=== PATIENT | male | born 1965 | race Caucasian/White ===

== ENCOUNTER 2016-05-01 08:25 | Inpatient (IN) | payer OTHER ==
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
[2016-07-12] MEDS ORDERED: LACTATED RINGERS 1,000 ML ONE (05:34)
[2016-07-12] MEDS ORDERED: GABAPENTIN 600 MG TABLET ONE (05:35)
[2016-07-12] MEDS ORDERED: TRAMADOL HCL 50 MG TABLET ONE (05:35)
[2016-07-12] MEDS ORDERED: ONDANSETRON 4 MG/2ML 2 ML VIAL ONE (05:35)
[2016-07-12] MEDS ORDERED: OXYCODONE HCL 10 MG TAB.SR PO ONE ×2 (05:35→07:45)
[2016-07-12] MEDS ORDERED: IV START KIT ONE (05:35)
[2016-07-12] MEDS ORDERED: FAMOTIDINE 20 MG TABLET ONE (05:35)
[2016-07-12] MEDS ORDERED: CELECOXIB 200 MG CAPSULE ONE (05:36)
[2016-07-12] MEDS ORDERED: CLONIDINE HCL 0.1 MG/24 HR (7 DAY PATCH) TD ONE (05:36)
[2016-07-12] MEDS ORDERED: KETAMINE HCL UD SYRINGE 100 MG/2 ML IV ONE ×2 (07:17→10:17)
[2016-07-12] MEDS ORDERED: MIDAZOLAM HCL 5 MG/5 ML VIAL ONE ×2 (07:17→08:46)
[2016-07-12] MEDS ORDERED: FENTANYL 5 ML ONE (07:18)
[2016-07-12] MEDS ORDERED: GABAPENTIN 600 MG TABLET PO ONE (07:45)
[2016-07-12] MEDS ORDERED: FAMOTIDINE 20 MG TABLET PO ONE (07:45)
[2016-07-12] MEDS ORDERED: TRANEXAMIC ACID 1,000 MG in SODIUM CHLORIDE 0.9% 100 ML IV PRN (07:45)
[2016-07-12] MEDS ORDERED: CELECOXIB 200 MG CAPSULE PO ONE (07:45)
[2016-07-12] MEDS ORDERED: POLYMYXIN B SULFATE 500,000 UNITS, BACITRACIN 25,000 UNITS in SODIUM CHLORIDE 3 L IRRIG... IR PRN (07:45)
[2016-07-12] MEDS ORDERED: BUPIVACAINE 0.25% (MDV) 20 ML in SODIUM CHLORIDE 0.9% FLUSH 20 ML IF PRN (07:45)
[2016-07-12] MEDS ORDERED: CEFAZOLIN SODIUM 2 GRAM PREMIX 100 ML IV PRN (07:45)
[2016-07-12] MEDS ORDERED: CLONIDINE HCL 0.1 MG/24 HR (7 DAY PATCH) TD SCH (07:45)
[2016-07-12] MEDS ORDERED: ONDANSETRON 4 MG/2ML 2 ML VIAL IV ONE (07:45)
[2016-07-12] MEDS ORDERED: BUPIVACAINE 0.25% (MDV) 24 ML, MORPHINE SULFATE 8 MG, EPINEPHRINE 0.3 MG in SODIUM CHLO... IF PRN (07:45)
[2016-07-12] MEDS ORDERED: TRAMADOL HCL 50 MG TABLET PO ONE (07:45)
[2016-07-12] MEDS ORDERED: CEFAZOLIN SODIUM 2 GRAM PREMIX 100 ML IV ONE (07:48)
[2016-07-12] MEDS ORDERED: BUPIVACAINE 0.5% (PRES FREE) 30 ML VIAL ONE (08:36)
[2016-07-12] MEDS ORDERED: SPINAL PROCEDURAL TRAY 1 EACH ONE (08:36)
[2016-07-12] MEDS ORDERED: PROPOFOL 40 ML IV ONE (08:46)
[2016-07-12] MEDS ORDERED: EPHEDRINE SULFATE UD SYR 25 MG 25 MG/5 ML SYRINGE IV ONE (10:07)
[2016-07-12] MEDS ORDERED: HYDROMORPHONE HCL 1 MG/ML SYRINGE IV PRN (10:13)
[2016-07-12] MEDS ORDERED: PROMETHAZINE HCL 25 MG/ML VIAL IM PRN (10:13)
[2016-07-12] MEDS ORDERED: FENTANYL 100 MCG/2 ML VIAL IV PRN (10:13)
[2016-07-12] MEDS ORDERED: ONDANSETRON 4 MG/2ML 2 ML VIAL IV PRN ×2 (10:13→12:37)
[2016-07-12] MEDS ORDERED: LACTATED RINGERS 1,000 ML IV SCH (10:15)
[2016-07-12] MEDS ORDERED: PROPOFOL 20 ML IV ONE ×2 (10:17)
[2016-07-12] MEDS ORDERED: PHENYLEPHRINE 10 MG/1 ML (1%) VIAL ONE (10:21)
[2016-07-12] MEDS ORDERED: ON-Q PUMP/ROPIVACAINE 0.2% 0 ML ONE (11:55)
[2016-07-12] MEDS ORDERED: TRAZODONE HCL 50 MG TABLET PO PRN (12:37)
[2016-07-12] MEDS ORDERED: CALCIUM CARBONATE 500 MG TAB.CHEW PO PRN (12:37)
[2016-07-12] MEDS ORDERED: HYDROXYZINE PAMOATE 25 MG CAPSULE PO PRN (12:37)
--- NOTE | 2016-07-12 12:54 | RAD ---
Exam: Single view pelvis COMPARISON: 11/04/2015 INDICATION: Postop left OREN. Findings: 2 AP views of the pelvis were obtained. Postsurgical changes of recent left hip arthroplasty are appreciated. Alignment is normal. No pericomponent fracture is identified. Skin francisca are present. A thin, linear metallic density projects over the pelvis and was present on the preoperative exam. Degenerative changes are again noted in the right hip. IMPRESSION: Expected postoperative appearance following left hip arthroplasty.
[2016-07-12 13:22] VITALS: BMI 23.3
[2016-07-12] MEDS ORDERED: PUMP TUBING ONE (13:36)
[2016-07-12] MEDS: D5 1/2NS with 20 mEq KCL 1,000 ML IV SCH ×2 (13:39→20:42)
[2016-07-12] MEDS ORDERED: FLU VACC 2016-17 (36MO-64Y)/PF 60 MCG/0.5 ML SYRINGE IM V ONE (13:41)
[2016-07-12] MEDS: ACETAMINOPHEN 500 MG TABLET PO SCH ×2 (13:42→19:05)
[2016-07-12] MEDS: CEFAZOLIN SODIUM 1 GRAM PREMIX 1 G in Premix (D5W) 50 ml 1 EACH IV SCH (17:47)
[2016-07-12] MEDS ORDERED: TRAMADOL HCL 50 MG TABLET PO PRN (18:45)
[2016-07-12] MEDS: KETOROLAC TROMETHAMINE 30 MG/ML 1 ML VIAL IV PRN (19:05)
[2016-07-12] MEDS: OXYCODONE HCL 5 MG TABLET PO PRN (19:05)
[2016-07-12] MEDS: DOCUSATE SODIUM 100 MG CAPSULE PO SCH (20:41)
[2016-07-12] MEDS: OXYCODONE HCL 10 MG TAB.SR PO SCH (20:42)
[2016-07-12] MEDS: ASCORBIC ACID 500 MG TABLET PO SCH (20:42)
[2016-07-13] MEDS ORDERED: CEFAZOLIN SODIUM 1 GRAM PREMIX 50 ML IV ONE (00:47)
[2016-07-13] MEDS: KETOROLAC TROMETHAMINE 30 MG/ML 1 ML VIAL IV PRN ×2 (00:54→05:32)
[2016-07-13] MEDS: OXYCODONE HCL 5 MG TABLET PO PRN ×4 (00:54→11:45)
[2016-07-13] MEDS: ACETAMINOPHEN 500 MG TABLET PO SCH ×4 (00:54→11:45)
[2016-07-13] MEDS: CEFAZOLIN SODIUM 1 GRAM PREMIX 1 G in Premix (D5W) 50 ml 1 EACH IV SCH (00:55)
[2016-07-13] MEDS: HYDROMORPHONE HCL 0.5 MG/0.5 ML SYRINGE IV PRN ×2 (03:59→05:12)
[2016-07-13] MEDS: D5 1/2NS with 20 mEq KCL 1,000 ML IV SCH (05:32)
[2016-07-13 07:10] LABS: HEMATOCRIT 35.2 % (32.0-52.0); HEMOGLOBIN 11.8 gm/l (14.0-18.0); MEAN CELL VOLUME 92.9 fl (80.0-94.0); MEAN CORPUSCULAR HEMOGLOBIN 31.1 pg (27.0-31.0); MEAN CORPUSCULAR HGB CONC 33.5 g/dl (33.0-37.0); RED CELL DISTRIBUTION WIDTH 13.1 % (11.5-14.5)
[2016-07-13 07:29] LABS: CALCIUM 8.1 mg/dL (8.6-10.3)
[2016-07-13] MEDS ORDERED: REMOVE PATCH 1 EACH UNIT TD SCH (07:45)
--- NOTE | 2016-07-13 08:09 | PDOC43 ---
- Subjective Findings: POD1 Left OREN. Subjective: Denies Pain Tolerable, Denies Chest Pain, Denies Shortness of Breath , Denies Nausea, Denies Vomiting - Objective Vital Signs Temperature 98.8 F 07/13/16 07:00 Pulse Rate 90 07/13/16 07:00 Respiratory Rate 20 07/13/16 07:00 Blood Pressure 118/76 07/13/16 07:00 O2 Saturation by Pulse Oximetry 99 07/13/16 07:00 Oxygen Delivery Method Nasal Cannula Oxygen Flow Rate 2 Laboratory 07/13/16 06:20 07/13/16 06:20 07/13/16 06:20 RBC 3.79 L MCH 31.1 H Estimated GFR 102 H Calcium 8.1 L Active Medication Orders Category Date Time Status Acetaminophen [Tylenol] Med 07/12/16 12:37 Active 1,000 mg PO Q6H Ascorbic Acid [Vitamin C] Med 07/12/16 21:00 Active 500 mg PO BID Aspirin (Enteric Coated) [Ecotrin] Med 07/13/16 09:00 Active 325 mg PO DAILY Bisacodyl [Dulcolax] Med 07/15/16 11:57 Active 10 mg OR DAILY PRN Calcium Carbonate [Tums] Med 07/12/16 12:37 Active 1,000 - 2,000 mg PO Q2H PRN D5 1/2NS with 20 mEq KCL [D51/2NS with 20 mEq KCL] 1, Med 07/12/16 12:37 Active 000 ml IV 125 mls/hr Docusate Sodium [Colace] Med 07/12/16 21:00 Active 100 mg PO BID Hydromorphone HCl [Dilaudid] Med 07/12/16 12:37 Active 0.5 mg IV Q1H PRN Hydroxyzine Pamoate [Vistaril] Med 07/12/16 12:37 Active 25 - 50 mg PO Q4H PRN Ketorolac Tromethamine [Toradol] Med 07/12/16 12:37 Active 30 mg IV Q6H PRN Magnesium Hydroxide [Milk of Magnesia] Med 07/13/16 11:57 Active 30 ml PO DAILY PRN Multivitamins [One-A-Day] Med 07/13/16 09:00 Active 1 tab PO DAILY Ondansetron 4 mg/2ml Vial [Zofran] Med 07/12/16 12:37 Active 4 - 6 mg IV Q6H PRN Oxycodone HCl [Roxicodone] Med 07/13/16 07:53 Ordered 5 - 10 mg PO Q3H PRN Oxycodone Sr [Oxycontin] Med 07/12/16 21:00 Active 10 mg PO Q12HR Remove Patch Med 07/13/16 11:57 Once 1 each TD X1 ONE Sodium Chloride 0.9% Flush [Normal Saline 10ml Flush] Med 07/12/16 12:37 Active 10 - 50 ml IV PRN PRN Sodium Chloride 0.9% Flush [Normal Saline 10ml Flush] Med 07/12/16 17:00 Active 10 ml IV Q8HR Tramadol HCl [Ultram] Med 07/12/16 18:45 Active 50 mg PO Q6H PRN Trazodone HCl [Desyrel] Med 07/12/16 12:37 Active 25 mg PO BEDTIME PRN Intake and Output 07/11/16 07/12/16 07/13/16 23:59 23:59 23:59 Intake Total 3426 1680 Output Total 1075 800 Balance 2351 880 General: Afebrile Lungs: Normal Air Movement Skin: Normal Color, Warm, Dry - Left Lower Extremity Incision: Dressing Clean/Dry/Intact, Rash, No Dressing Saturated Motor: Extensor Hallucis Longus: 5/5, Tibialis Anterior: 5/5, Gastrocnemius: 5/5 , Peroneals: 5/5 Gross Sensation to Light Touch: Present: Deep Peroneal Nerve, Superficial Peroneal Nerve - Problems (1) Status post total hip replacement, left Status: Acute - Additional Comments POD1 after Left OREN. Patient reports increased pain this morning in left hip. 1. Physical Therapy: WBAT with [facility]. 2. Pain Control: multimodal pain control as needed, Increase Oxycodone 5/325mg 2 -tablets every 3-hours for increased pain this morning. 3. DVT Prophylaxis: ASA 325mg, mobilization. 4. Disposition: Plan for discharge home today. 5. Medical Issues: Adjusted pain medication to address Poor pain control this morning.
[2016-07-13] MEDS: OXYCODONE HCL 10 MG TAB.SR PO SCH (08:17)
[2016-07-13] MEDS: ASCORBIC ACID 500 MG TABLET PO SCH (08:17)
[2016-07-13] MEDS: DOCUSATE SODIUM 100 MG CAPSULE PO SCH (08:17)
[2016-07-13] MEDS ORDERED: ASPIRIN (ENTERIC COATED) 325 MG TABLET.EC PO SCH (09:00)
[2016-07-13] MEDS ORDERED: MULTIVITAMINS 1 TAB TABLET PO SCH (09:00)
[2016-07-13] MEDS ORDERED: REMOVE PATCH 1 EACH UNIT TD ONE (11:57)
[2016-07-13] MEDS ORDERED: MAGNESIUM HYDROXIDE 30 ML UDCUP PO PRN (11:57)
[2016-07-13 13:31] VITALS: BP 122/72
--- NOTE | 2016-07-14 14:08 | OP ---
Adam CRUZ : 1965 [id number] DATE OF SERVICE: July 12, 2016 PREOPERATIVE DIAGNOSIS: Left hip osteoarthritis. POSTOPERATIVE DIAGNOSIS: Left hip osteoarthritis. PROCEDURE PERFORMED: LEFT TOTAL HIP ARTHROPLASTY. SURGEON: Eitan Loo M.D. VERTICAL PUNCH OPERATOR: Gadiel Nuñez P.A.-C. ANESTHESIA: Sneha BaezNJoseph. SPECIMENS: No material was sent to the laboratory. ESTIMATED BLOOD LOSS: 250 mL. FLUIDS REPLACED: 1500 mL of crystalloid. URINE OUTPUT: 500 mL. TOURNIQUET: None. IMPLANTS: DePuy Corail stem size 12 standard offset with 40 mm +1 BioLox head, a Fonda 56 mm cup with a neutral 40 56 poly liner. INDICATIONS: Patient is a 50-year-old male with long-standing left hip osteoarthritis which has failed to respond to a course of nonoperative measures. Patient has exam and radiographic findings, which support this diagnosis. In order to restore patient's ability to participate in desired level of activities they were offered a total hip arthroplasty. The risks, benefits and alternatives of therapy were discussed with the patient at length and they elected to proceed with surgery. The patient underwent preoperative clearances. Informed consent was obtained and documented in the chart and the patient was placed on the schedule at the first available convenience. DESCRIPTION OF PROCEDURE: The patient was identified in the pre-operative holding area where they were marked with an indelible marker by the operating surgeon. Patient was taken to the operating room where they underwent a spinal anesthetic and then was positioned on the left side using a pegboard for intraoperative positioning. An axillary roll was placed and all bony prominences were padded. The patient was prepped and draped in the usual sterile fashion for surgery and received perioperative antibiotics and tranexamic acid. A final operative time out was performed and confirmed by all members of the operative team. A standard posterior approach to the hip was used with dissection carried down to the fascia overlying the greater trochanter. The fascia was divided and a Charnley retractor was placed. The trochanteric bursa was excised. The sciatic nerve was identified and protected throughout the procedure. The leg was taken into internal rotation and the piriformis tendon with elevated out of the piriformis fossa and tagged for later repair and then an L-shaped arthrotomy was made dividing the capsule as far anteriorly as we could get on the neck and then taking up a posterior flap that involved the posterior capsule and the remainder of the short external rotators. At this point the hip was dislocated posteriorly and the level of our neck cut was marked out with a neck cut to guide. A neck cut was made with an oscillating saw and the head was excised. The anterior capsule was excised using a Bovie as was the entirety of the labrum and anterior and posterior and inferior retractors were placed. We started reaming with a 50 mm reamer to get medial to the true floor of the acetabulum and then reamed up to a 55 mm which gave us a good circumferential bleeding bone and appropriate fit. A 55 mm trial was placed and we were satisfied with the fit of the acetabulum. This was exchanged then for a 56 mm Fonda cup with cluster holes. This was impacted in place and had excellent stability and position. Some overhanging bone in the anterior portion of the cup was excised using an osteotome and then a domed hole plug was placed and the neutral liner was impacted into the cup. At this point the anterior, posterior and inferior retractors were removed. The femoral neck elevator was placed and access to the proximal femur was obtained using a box osteotome and a canal finder. We broached up until we had good rotational and a longitudinal stability with a size 12 broach and then trialed off of that broach eventually settling on a standard offset with a 40 mm head at +1.5 neck length. This gave us excellent stability throughout. Anatomic range of motion did not show excessive tightness in extension, showed no tightness in the sciatic nerve and appropriately matched the opposite leg length. At this point all the trials were removed from the femur. The canal was copiously irrigated with a pulse lavage and the final stem was impacted into place. A 40 mm +1.5 BioLox head was then tapped on to the trunnion and the hip was reduced. Again, we were satisfied with our range of motion, leg length and stability. Three drill holes were made in the posterior, superior greater trochanter and the sutures that had been previously placed in the piriformis and the posterior capsule were used to repair these structures back to the femur. The hip was placed into a slightly abducted and externally rotated position. The Charnley retractors were removed. Everything was copiously irrigated with sterile saline and we closed the fascia with a running #0 Quill, the subcutaneous fat with a running #0 Vicryl, the subcutaneous tissues with interrupted sutures of #2-0 Vicryl and the skin with francisca. A sterile dressing of Xeroform, fluffs, ABDs and Medipore tape was applied. The drapes were removed. The patient was repositioned supine, transferred to a stretcher and taken postoperatively to the post anesthesia care unit in stable condition. There were no observed intraoperative conditions during this procedure. Job [id number] Cc: Ouaquagaayse Dalal
[2016-07-15] MEDS ORDERED: BISACODYL 10 MG SUP PR PRN (11:57)
== END 2016-07-13 17:00 | disposition home or self-care (01) | DRG 470 ==
LOC: OR 07-12 07:40 → MS 07-12 12:52
PROVIDERS: ADMIT Orthopaedic Surgery; ATTEND Orthopaedic Surgery
PROC: 0SRB04A Replacement of Left Hip Joint with Ceramic on Polyethylene Synthetic Substitute, Uncemented, Open Approach (ICD-10-PCS; principal; 2016-07-12)
DX: M16.0 Bilateral primary osteoarthritis of hip (principal); I10 Essential (primary) hypertension